=== PATIENT | female | born 1955 | race Caucasian/White ===

== ENCOUNTER 2020-10-16 18:15 | Inpatient (IN) | payer MEDICARE, OTHER ==
[~2020-10-16] VITALS: Ht 160 cm; Wt 63.5 kg
[2020-10-17 23:29] LABS: HEMOGLOBIN 8.8 gm/dl (12.3-15.3); RED BLOOD COUNT 3.19 M/UL (4.00-5.10); WHITE BLOOD COUNT 9.2 K/UL (4.5-11.0)
[2020-10-18] MEDS ORDERED: CITALOPRAM HBR10 MG PO (00:13)
[2020-10-18] MEDS ORDERED: KLONOPIN0.5 MG PO (00:14)
[2020-10-18] MEDS ORDERED: VITAMIN D21250 MCG PO (00:17)
[2020-10-18] MEDS ORDERED: LEVOTHYROXINE88 MC1 PO (00:18)
[2020-10-18] MEDS ORDERED: NITROSTAT 0.40.4 MG SL (00:19)
[2020-10-18] MEDS ORDERED: PROTONIX IV40 MG IV (00:19)
[2020-10-18] MEDS ORDERED: SIMVASTATIN20 MG PO (00:20)
[2020-10-18] MEDS ORDERED: TRAMADOL HCL50 MG PO (00:21)
[2020-10-18 05:22] LABS: HEMOGLOBIN 8.3 gm/dl (12.3-15.3); RED BLOOD COUNT 3.07 M/UL (4.00-5.10)
[2020-10-18 05:30] LABS: WHITE BLOOD COUNT 5.7 K/UL (4.5-11.0)
[2020-10-18 13:19] LABS: BORDETELLA PARAPERTUSSIS Not Detected (Not Detectd); BORDETELLA PERTUSSIS Not Detected (Not Detectd); CHLAMYDIA PNEUMONIAE Not Detected (Not Detectd); CORONAVIRUS HKU1 Not Detected (Not Detectd); CORONAVIRUS NL63 Not Detected (Not Detectd); CORONAVIRUS OC43 Not Detected (Not Detectd); CORONOAVIRUS 229E Not Detected (Not Detectd); HUMAN METAPNEUMOVIRUS Not Detected (Not Detectd); HUMAN RHINOVIRUS/ENTEROVIRUS Not Detected (Not Detectd); INFLUENZA A Not Detected (Not Detectd); INFLUENZA B Not Detected (Not Detectd); MYCOPLASMA PNEUMONIAE Not Detected (Not Detectd); PARAINFLUENZA VIRUS 1 Not Detected (Not Detectd); PARAINFLUENZA VIRUS 2 Not Detected (Not Detectd); PARAINFLUENZA VIRUS 3 Not Detected (Not Detectd); PARAINFLUENZA VIRUS 4 Not Detected (Not Detectd); RESPIRATORY SYNCYTIAL VIRUS Not Detected (Not Detectd)
[2020-10-18 15:09] LABS: SARS-CoV-2 NOT DETECTED (Not Detectd)
[2020-10-19 05:46] LABS: HEMOGLOBIN 8.6 gm/dl (12.3-15.3); RED BLOOD COUNT 3.14 M/UL (4.00-5.10)
[2020-10-19 05:47] LABS: WHITE BLOOD COUNT 12.8 K/UL (4.5-11.0)
[2020-10-19 08:09] LABS: COMPLEMENT C4, SERUM 23 mg/dL (12-38)
[2020-10-20 05:23] LABS: HEMOGLOBIN 8.6 gm/dl (12.3-15.3); RED BLOOD COUNT 3.35 M/UL (4.00-5.10); WHITE BLOOD COUNT 7.8 K/UL (4.5-11.0)
[2020-10-20 15:11] LABS: MYCOPLASMA PNEUMONIAE, IGM AB <770 U/mL (0-769)
--- NOTE | 2020-10-20 16:10 | NUR ---
[facility] CALLED STATED THAT THEY DONT HAVE ANY ICU BEDS AT THIS TIME DR DEL CASTILLO MADE AWARE
[2020-10-21 10:14] LABS: CREATININE, URINE 50.8 mg/dL (Not Estab.)
[2020-10-21 15:09] LABS: CYTOPLASMIC (C-ANCA) >1:640 titer (Neg:<1:20); PERINUCLEAR (P-ANCA) <1:20 titer (Neg:<1:20)
[2020-10-21 19:11] LABS: FUNGITELL, SERUM <31 pg/mL (<80)
[2020-10-21 19:11] LABS: ORGANISM ID Not indicated. (.); SPECIMEN SOURCE Urine (.); STREPTOCOCCUS PNEUMONIAE AG Negative (Negative)
[2020-11-07 13:14] LABS: ANTI-DSDNA ANTIBODIES <1 IU/mL (0-9); ATYPICAL PANCA <1:20 titer (Neg:<1:20); COMPLEMENT C3, SERUM 193 mg/dL (82-167)
== END 2020-10-21 00:15 | disposition short-term general hospital (02) | DRG 545 ==
LOC: MED SURG 4 10-17 20:40
PROVIDERS: Internal Medicine; ADMIT Internal Medicine
DX: M31.7 Microscopic polyangiitis (principal); J80 Acute respiratory distress syndrome; J18.9 Pneumonia, unspecified organism; N17.9 Acute kidney failure, unspecified; Z20.822 Contact with and (suspected) exposure to COVID-19; I77.89 Other specified disorders of arteries and arterioles; I28.8 Other diseases of pulmonary vessels; J03.90 Acute tonsillitis, unspecified; R80.9 Proteinuria, unspecified; D64.9 Anemia, unspecified; E03.9 Hypothyroidism, unspecified; Z87.891 Personal history of nicotine dependence; Z80.1 Family history of malignant neoplasm of trachea, bronchus and lung; Z79.899 Other long term (current) drug therapy
CPT/HCPCS: 36415; 71045; 80048; 80053; 80202; 81001; 82043; 82150; 82436; 82550; 82553; 82570; 83540; 83550; 83615; 83690; 84133; 84156; 84300; 84484; 85025; 85610; 85730; 86021; 86140; 86160; 86162; 86225; 86256; 86738; 86850; 86900; 86901; 86920; 87278; 87633; 87899; 89050; 93005; 94760; C9113; J0456; J1644; J2185; J2405; J2543; J2930; J3370; J7030; J7070

== ENCOUNTER → 2021-04-27 | Outpatient (CLI) | payer MEDICARE, OTHER ==
[~2021-04-27] MED LIST: CITALOPRAM HBR10 MG PO; KLONOPIN0.5 MG PO; LEVOTHYROXINE88 MC1 PO; NITROSTAT 0.40.4 MG SL; PROTONIX IV40 MG IV; SIMVASTATIN20 MG PO; TRAMADOL HCL50 MG PO; VITAMIN D21250 MCG PO
== END ==
LOC: EXRD 16:14
DX: R05 Cough (principal); Z87.448 Personal history of other diseases of urinary system
CPT/HCPCS: 94010

== ENCOUNTER → 2021-10-23 | Outpatient (CLI) | payer MEDICARE, OTHER | LOC: CT 15:18 | DX: J32.0 Chronic maxillary sinusitis (principal); J32.1 Chronic frontal sinusitis; J32.2 Chronic ethmoidal sinusitis | CPT/HCPCS: 70486 ==